=== PATIENT | female | born 1990 | race African-American/Black ===

== ENCOUNTER 2023-05-21 03:53 | Inpatient (IN) | payer BC, SELFPAY ==
[2023-05-21] VITALS (197 sets, daily range): BP systolic 114–204; BP diastolic 44–176; PULSE 60–194; RESP 16–24; TEMP 36.3–37.1; O2SAT 61–100; BMI 34.0
[2023-05-21] MEDS: MAGNESIUM SULF 4 GM/WATER100ML 4 GM/100 ML BAG IVPB (05:30)
[2023-05-21] MEDS: AMPICILLIN 2 GM/NS 100 ML 2 GM/100 ML BAG IVPB (05:31)
[2023-05-21] MEDS: LACTATED RINGERS 1,000 ML 125 ML IV CONT ×2 (05:31→16:18)
[2023-05-21 05:38] LABS: Basophils Percent Auto 0.2 % (0.2-1.2); Eosinophils Absolute Auto 0.6 K/mm3 (0-0.3); Eosinophils Percent Auto 6.3 % (0-4.4); Hematocrit 32.6 % (37.0-47.0); Hemoglobin 10.3 g/dL (12.0-15.0); Immature Granulocyte Absolute 0.04 K/mm3 (0.00-0.031); Immature Granulocyte Percent A 0.4 % (0-0.5); Lymphocytes Absolute Auto 1.82 K/mm3 (0.9-3.2); Lymphocytes Percent Auto 19.7 % (18.3-44.2); Mean Corpuscular HGB Conc 31.6 g/dl (32-36); Mean Corpuscular Volume 88.6 fl (80-100); Mean Platelet Volume 11.4 fl (7.4-10.4); Monocytes Absolute Auto 0.6 K/mm3 (0.1-0.6); Monocytes Percent Auto 6.8 % (2.6-8.5); Neutrophils Absolute Auto 6.1 K/mm3 (1.3-6.7); Neutrophils Percent Auto 66.6 % (45.5-73.1); Platelet Count Result 170 k/mm3 (150-375); Red Blood Count 3.68 M/mm3 (4.2-5.4); Red Cell Distribution Width 15.6 % (11.5-14.5); White Blood Count 9.2 K/mm3 (4.5-10.0)
--- NOTE | 2023-05-21 05:43 | LDADM ---
This patient, Kristy May Loveben, was admitted to Labor/Delivery/Recovery 105 on 05/21/23 at 03:53. Plans for labor, pain management and were discussed with patient. Patient/family oriented to hospital policies and general routines including ID bracelet, bed and alarms, visiting hours, pain management, procedures, bathroom and other care routines, personal items, smoking policy, room service/diet and guest tray routines, security routines, and visiting hours. Patient/Family are encouraged to report perceived risks to care and to ask questions if they do not understand what they are told or what they should do. See OBIX for further documentation.
[2023-05-21 05:47] LABS: Alanine Aminotransferase 19 U/L (6-35); Albumin Level 3.7 g/dL (3.5-5.1); Alkaline Phosphatase 140 U/L (38-126); Anion Gap 7 mmol/L (8-16); Aspartate Amino Transferase 27 U/L (14-36); Bilirubin,Total 0.4 mg/dL (0.2-1.3); Blood Urea Nitrogen 27 mg/dL (7-17); Calcium 8.6 mg/dL (8.4-10.2); Carbon Dioxide 17 mmol/L (22-30); Chloride 110 mmol/L (98-107); Estimated Glomerular Filt Rate 17; Glucose 79 mg/dL (65-110); Potassium 3.8 mmol/L (3.4-5.0); Sodium 134 mmol/L (137-145)
[2023-05-21] MEDS: MAGNESIUM SULF 20GM/WATER500ML 500 ML 50 MG IV CONT (05:51)
--- NOTE | 2023-05-21 06:56 | PC.NURSE ---
Verified magnesium sulfate assessment with Keri Louise RN at 0600.
[2023-05-21 07:40] LABS: Uric Acid 10.1 mg/dL (2.5-7.5)
[2023-05-21] MEDS: OXYTOCIN 30 UNITS/NS 500 ML 30 UNITS/500 ML BAG IV CONT (08:08)
--- NOTE | 2023-05-21 09:10 | WPDANESEPP ---
Anes - Eval Pre Procedure Procedure: labor epidural Date/Time: 05/21/23 09:10 Surgeon: chrissie Preop Diagnosis: pain during labor Pre Op Diagnosis: IOL Patient Data Age: 32 Gender: F Height: 1.6 m Weight: 87 kg Last Vital Signs Temp 37.1 C 05/21/23 08:08 Pulse 86 05/21/23 09:01 Resp 18 05/21/23 06:00 BP 150/86 H 05/21/23 09:01 O2 Del Method Room Air 05/21/23 06:05 Allergies Allergy/AdvReac Type Severity Reaction Status Date / Time No Known Allergies Allergy Verified 05/10/23 12:58 Home Medications Medication Instructions Recorded Confirmed Type prenat.vits,rocio,whe-xjfz-xhrpf 1 tablet 05/10/23 History Laboratory Tests 05/21/23 05:26 WBC 9.2 K/mm3 (4.5-10.0) RBC 3.68 L M/mm3 (4.2-5.4) Hgb 10.3 L g/dL (12.0-15.0) Hct 32.6 L % (37.0-47.0) MCV 88.6 fl (80-100) MCH 28.0 pg (26-34) MCHC 31.6 L g/dl (32-36) RDW 15.6 H % (11.5-14.5) Plt Count 170 k/mm3 (150-375) MPV 11.4 H fl (7.4-10.4) Immature Gran % (Auto) 0.4 % (0-0.5) Neut % (Auto) 66.6 % (45.5-73.1) Lymph % (Auto) 19.7 % (18.3-44.2) [place] % (Auto) 6.8 % (2.6-8.5) Eos % (Auto) 6.3 H % (0-4.4) Baso % (Auto) 0.2 % (0.2-1.2) Lymph # (Auto) 1.82 K/mm3 (0.9-3.2) [place] # (Auto) 0.6 K/mm3 (0.1-0.6) Eos # (Auto) 0.6 H K/mm3 (0-0.3) Baso # (Auto) 0.0 K/mm3 (0.0-0.1) Abs Immat Gran (auto) 0.04 H K/mm3 (0.00-0.031) Absolute Neuts (auto) 6.1 K/mm3 (1.3-6.7) Absolute Nucleated RBC 0.0 K/mm3 (0.0-0.012) Nucleated RBC % 0.0 % (0.0-0.2) Sodium 134 L mmol/L (137-145) Potassium 3.8 mmol/L (3.4-5.0) Chloride 110 H mmol/L (98-107) Carbon Dioxide 17 L mmol/L (22-30) Anion Gap 7 L mmol/L (8-16) BUN 27 H mg/dL (7-17) Creatinine 3.70 H mg/dL (0.7-1.0) Estim Creat Clear Calc Not Reportable Estimated GFR 17 L (59 - ) Glucose 79 mg/dL (65-110) Uric Acid 10.1 H mg/dL (2.5-7.5) Calcium 8.6 mg/dL (8.4-10.2) Total Bilirubin 0.4 mg/dL (0.2-1.3) AST 27 U/L (14-36) ALT 19 U/L (6-35) Alkaline Phosphatase 140 H U/L (38-126) Total Protein 7.0 g/dL (6.3-8.2) Albumin 3.7 g/dL (3.5-5.1) RPR Pending Blood Type A Positive Antibody Screen Negative Patient hx anesthesia problems: none Family hx anesthesia problems: none Results Review: All pre-operative results and documents have been reviewed as part of the pre-operative evaluation. [facility] Past Medical History Medical History (Updated 05/21/23 @ 09:10 by Ayanna Clancy CRNA) IUP (intrauterine ), incidental Family History Family History (Updated 05/10/23 @ 13:07 by Vanessa Watts RN) Grandparent Dementia Sibling Heart valve disease Mother Cervical cancer Grandparent Hypertension Social History Social History Smoking status: Never smoker Substance use: never Do You Feel Safe in your Home?: Yes Lack of Transportation: No Lack of Food: Never True Current Housing: I Have Housing Concerned About Future Housing: No Difficulty Paying Gas/Electric Bills: No Difficulty Paying for Meds: No Currently Unemployed: No Education: Bachelor's Degree Difficulty w/ Childcare or Family Care: No Spiritual care concerns: No Exam Day of Procedure 05/21/23 09:10
[2023-05-21] MEDS: AMPICILLIN 1 GM/NS 50 ML 1 GM/50 ML BAG IVPB ×2 (09:43→14:20)
[2023-05-21 12:09] LABS: Rapid Plasma Reagin Non-Reactive (NonReactive)
[2023-05-21 13:15] LABS: Magnesium 7.5 mg/dL (1.6-2.3)
--- NOTE | 2023-05-21 17:08 | WPDHPUPDATE1 ---
History and Physical Update Update Date/Time: 05/21/23 17:08 32-year-old primiparous female who presented overnight with ruptured membranes. She was spontaneously in early labor and proceeded to a more active phase. Later in labor she was augmented. She was getting external monitoring and maternal monitoring. She at a point got epidural anesthesia. History and Physical has been reviewed, including an updated exam of the patient. There are NO changes in the patient's condition. Risks, benefits, and alternatives have been discussed and questions answered. Patient agrees to proceed with procedure.
--- NOTE | 2023-05-21 17:10 | PM.IMHP ---
H&P: HPI History of Present Illness Date/Time: 05/21/23 17:10 Chief Complaint: labor Narrative: 32-year-old primiparous female who was in labor. She has failure to descend. We have agreed to perform delivery. She understands there is risk to delivery. She understands surgery in delivery, the technical aspects in some detail. She understands the risk is injury. She understands that injuries may result in hospitalization, more surgery, and severe illness. She understands risk of hemorrhage and infection. She denies any nausea, vomiting, fever, chills. She denies any chest pain shortness of breath. Review of Systems Review of Systems: All systems reviewed & are unremarkable except as noted in HPI and below Constitutional: Constitutional: Denies chills, Denies fatigue, Denies fever(s) and Denies weakness Eyes: Eyes: Denies blurry vision, Denies change in vision, Denies loss of peripheral vision, Denies loss of vision, Denies other visual disturbances and Denies eye pain ENT: Denies vertigo, Denies dizziness, Denies hearing loss, Denies mouth pain, Denies nasal obstruction, Denies neck mass and Denies neck pain Cardiovascular: Cardiovascular: Denies chest pain, Denies diaphoresis, Denies syncope, Denies leg edema and Denies dyspnea Respiratory: Respiratory: Denies chest congestion, Denies cough, Denies hemoptysis, Denies dyspnea and Denies wheezing Gastrointestinal: Gastrointestinal: Denies abdominal pain, Denies constipation, Denies diarrhea, Denies nausea and Denies vomiting Genitourinary: Genitourinary: Denies hematuria, Denies change in libido, Denies nocturia, Denies genital lesions, Denies flank pain and Denies urinary urgency Musculoskeletal: Musculoskeletal: Denies abnormal gait, Denies back pain, Denies myalgias, Denies arthralgias, Denies joint swelling, Denies muscle weakness and Denies neck pain Integumentary/Breasts: Skin/Breast: Denies swelling, Denies breast pain, Denies breast mass, Denies dry skin, Denies nipple discharge, Denies unusual bruising and Denies jaundice Neurologic: Denies Neuro-related abnormal movements, Denies Abnormal speech present, Denies abnormal gait, Denies behavioral changes, Denies confusion, Denies vertigo, Denies dizziness, Denies syncope, Denies loss of vision, Denies memory loss, Denies convulsions and Denies weakness Psychiatric: Psychiatric: Denies abnormal sleep pattern, Denies behavioral changes, Denies change in libido, Denies confusion, Denies depression, Denies anhedonia and Denies memory loss Endocrine: Endocrine: Reports no additional endocrine complaints, Denies change in libido and Denies fatigue Hematologic/Lymphatic: Hematologic/Lymphatic: Reports no additional hematologic/lymphatic complaints Allergic/Immunologic: Allergic/Immunologic: Reports no additional allergic/immunologic complaints and Denies wheezing PMFSH Past Medical History Medical History (Updated 05/21/23 @ 17:14 by Kassie eBcker MD) IUP (intrauterine ), incidental Family History Family History (Updated 05/10/23 @ 13:07 by Vanessa Watts RN) Grandparent Dementia Sibling Heart valve disease Mother Cervical cancer Grandparent Hypertension Social History Social History Smoking status: Never smoker Substance use: never Do You Feel Safe in your Home?: Yes Lack of Transportation: No Lack of Food: Never True Current Housing: I Have Housing Concerned About Future Housing: No Difficulty Paying Gas/Electric Bills: No Difficulty Paying for Meds: No Currently Unemployed: No Education: Bachelor's Degree Difficulty w/ Childcare or Family Care: No Spiritual care concerns: No Meds Home Medications and Allergies Home Medications Medication Instructions Recorded Confirmed Type prenat.vits,rocio,mut-ycjk-vkbac 1 tablet 05/10/23 History Allergies Allergy/AdvReac Type Severity Reaction Status Date / Time No Known Allergies All
[2023-05-21] MEDS: ceFAZolin 2 GM/D5W 50 ML 2 GM/50 ML BAG 100 GM (17:22)
[2023-05-21] MEDS: AZITHROMYCIN 500 MG/NS 250 ML 500 MG/250 ML BAG 250 MG (17:22)
--- NOTE | 2023-05-21 17:37 | PC.NURSE ---
FHT obtained in OR before prepping patient. FHT 125 at 1727.
--- NOTE | 2023-05-21 18:32 | PC.NURSE ---
Any section charting under Marielle Mabry RN was completed by Kd Wagner RN. Marielle Mabry RN was logged into the computer and Kd Wagner RN did not realize. Marielle Mabry RN notified and agrees with note.
--- NOTE | 2023-05-21 18:34 | PC.NURSE ---
Due to low position from pushing, during section Kd Wagner RN had to don a sterile glove and enter underneath the sterile field to push head up into pelvis high enough for MD to grab head to deliver via section.
--- NOTE | 2023-05-21 18:48 | W.PM.OBCSD ---
OB - Delivery Note Procedure Delivery date: 05/21/23 Pre-op diagnosis: Arrest of Decent Post-op Diagnosis: Same Delivery augmentation: Pitocin Delivery monitor: External FHT and External Uterine Prior to decision for section, ACOG/SMFM labor guidelines were considered and discussed with the patient and staff. Decision made to proceed with the section.: Yes Procedure Performed: Primary Surgeon: Kassie Becker MD Anesthesia type: Epidural Description of Procedure/Findings: The patient was taken the operating room.? She was prepped and draped in dorsal supine position with a leftward tilt.? This was done after spinal anesthetic was applied.? A low-transverse skin incision was made and carried down till of the fascia with the knife.? The fascial incision was made with the knife.? The fascial incision was extended laterally with [place] scissors.? The fascia was tented upward superiorly and inferiorly the rectus muscles were dissected off bluntly.? The rectus muscles were the midline.? The preperitoneal fat and peritoneum were dissected open bluntly at the superior aspect of the rectus muscles.? The peritoneal incision was extended superior and inferior with good position of bladder.? The uterine incision was made with a scalpel down to the level of the amniotic cavity.? The amniotic cavity was entered bluntly.? The infant was delivered.? The cord was clamped and cut and the was handed off to waiting pediatric staff.? Cord bloods were obtained.? The placenta was removed manually.? The uterus was exteriorized.? The uterus was cleared of all clots, debris and membranes.? The uterus was closed in 0 Vicryl running lock fashion.? imbricating layer of 0 Vicryl was placed also. The uterus was returned to the abdomen.? The gutters were cleared of all clots and debris.? The fascia was closed with 0 Vicryl running fashion.? The subcutaneous tissue was irrigated pinpoint bleeders were cauterized.? The skin was closed with subcuticular absorbable nerissa.? The skin incision line was covered with glue.? The patient tolerated the procedure well.? She has taken recovery room in stable condition.? Sponge lap and needle counts were correct x2.? Specimen: No Estimated Blood Loss: 530 Complications: No immediate complications Condition: Stable Disposition: Floor Baby Weeks of gestation at delivery: 38
[2023-05-21] MEDS: LABETALOL HCL 100 MG TABLET 200 MG PO (20:30)
--- NOTE | 2023-05-21 20:52 | OBPPTRN ---
Patient transferred to post room #290 via stretcher. Support person present. Oriented to unit, room, information board, rooming in, admission packet and security measures. Patient verbalizes understanding.
[2023-05-21] MEDS: KETOROLAC 30 MG/ML VIAL (*BKC) IV PUSH (22:20)
[2023-05-22] VITALS (9 sets, daily range): BP systolic 109–142; BP diastolic 56–92; PULSE 75–100; RESP 16–18; TEMP 36.6–37.6; O2SAT 97–100
[2023-05-22] MEDS: ONDANSETRON INJ 4 MG/2 ML VIAL IV PUSH (04:15)
[2023-05-22 06:22] LABS: Basophils Percent Auto 0.2 % (0.2-1.2); Eosinophils Percent Auto 0.1 % (0-4.4); Hematocrit 28.1 % (37.0-47.0); Hemoglobin 8.9 g/dL (12.0-15.0); Immature Granulocyte Absolute 0.14 K/mm3 (0.00-0.031); Immature Granulocyte Percent A 0.7 % (0-0.5); Lymphocytes Absolute Auto 1.31 K/mm3 (0.9-3.2); Lymphocytes Percent Auto 6.6 % (18.3-44.2); Mean Corpuscular HGB Conc 31.7 g/dl (32-36); Mean Corpuscular Hemoglobin 28.1 pg (26-34); Mean Corpuscular Volume 88.6 fl (80-100); Neutrophils Absolute Auto 17.3 K/mm3 (1.3-6.7); Neutrophils Percent Auto 87.4 % (45.5-73.1); Platelet Count Result 154 k/mm3 (150-375); Red Blood Count 3.17 M/mm3 (4.2-5.4); Red Cell Distribution Width 15.5 % (11.5-14.5); White Blood Count 19.8 K/mm3 (4.5-10.0)
--- NOTE | 2023-05-22 07:41 | WPDANLDPN2 ---
Anes-Prog Note L&D Date/Time: 05/22/23 07:41 Comfortable throughout: section Neuraxial method: epidural Epidural/Spinal procedure site: clean & non-tender Neuro status: Neuro function grossly intact. Cardiovascular status: normal Respiratory status: normal Airway patency: baseline Mental status: baseline Post-Op hydration status: normal Vital Signs: Last Vital Signs Temp 97.8 F 05/22/23 01:06 Pulse 80 05/22/23 04:19 Resp 16 05/22/23 01:06 BP 142/87 H 05/22/23 04:19 Pulse Ox 100 05/22/23 01:06 O2 Del Method Room Air 05/22/23 01:06 Pain score (VAS): 0/10 I/O: Intake & Output 05/21/23 05/21/23 05/22/23 15:59 23:59 07:59 Intake Total 0881 419 7351 Output Total 950 1450 Balance 1050 -450 -450 Post-procedural complaints: none Patient feedback: Patient satisfied with anesthetic care.
--- NOTE | 2023-05-22 07:42 | WPDANLDNPN2 ---
Anes-Prog Note L&D-Neuraxial Date/Time: 05/22/23 07:42 Neuraxial medications: intrathecal PF morphine Opiod-related complaints: none Patient feedback: Patient satisfied with post-operative pain management.
--- NOTE | 2023-05-22 08:24 | PM.OBPNVD ---
OB - PN: Subj Subjective Date/time seen: 05/22/23 08:24 Patient comments: no complaints, pain well controlled, tolerating diet and flatus present OB - PN: Obj Data Labs 05/22/23 06:08 05/21/23 05:26 Labs: Laboratory Results - last 24 hr 05/21/23 05/21/23 05/22/23 05:26 12:16 06:08 WBC 19.8 H RBC 3.17 L Hgb 8.9 L Hct 28.1 L MCV 88.6 MCH 28.1 MCHC 31.7 L RDW 15.5 H Plt Count 154 MPV 12.0 H Immature Gran % (Auto) 0.7 H Neut % (Auto) 87.4 H Lymph % (Auto) 6.6 L [place] % (Auto) 5.0 Eos % (Auto) 0.1 Baso % (Auto) 0.2 Lymph # (Auto) 1.31 [place] # (Auto) 1.0 H Eos # (Auto) 0.0 Baso # (Auto) 0.0 Abs Immat Gran (auto) 0.14 H Absolute Neuts (auto) 17.3 H Absolute Nucleated RBC 0.0 Nucleated RBC % 0.0 Magnesium 7.5 H RPR Non-reactive OB - PN A/P Plan day: 1 Comments: Post Op LTCS - no problems, routine recovery Time Spent With Patient Time: Total time spent is greater than 50% in coordination of care (as documented) at patient's floor/unit and/or counseling patient: Exam Const: General: cooperative, healthy appearing, comfortable and no acute distress Resp: Auscultation: no crackles, no rales, no rhonchi and no wheezes Cardio: Rhythm: regular rhythm Heart sounds: no click and no murmurs GI: Inspection: non-distended Auscultation: normal bowel sounds Extrem: General: normal to inspection, no pedal edema and no calf tenderness
[2023-05-22] MEDS: LABETALOL HCL 100 MG TABLET 200 MG PO ×2 (09:58→23:16)
[2023-05-22] MEDS: IBUPROFEN 600 MG TABLET PO ×3 (09:59→23:15)
[2023-05-22] MEDS: POLYSACCHARIDE IRON COMPLEX 150 MG CAPSULE PO ×2 (09:59→16:14)
--- NOTE | 2023-05-22 13:13 | PC.NURSE ---
[id number] Re-introductions were made since meeting at the class, then consulted with patient to assess needs related to . Mother led the conversation with her?plans to feed?her , the?experience so far without pain. Encouraged understanding of the benefits of skin to skin (demonstrating unwrapping and placing upright on her chest), stimulating with massage touch, changing positions to encourage wakefulness, how to watch for early feeding cues, responsive feeding, feeding on demand (aiming for 8-12 times in 24 hours, about every 2-3 hours), milk production, building/maintaining a milk supply, duration of feeding, signs of adequate intake/output and how to record on the feeding sheet. Mother verbalizes she is able to independently latch infant with appropriate positioning and alignment. She denies any nipple discomfort and is responsively . is currently meeting outcomes for weight, output, jaundice, blood sugar and feeding frequencies of 8-12 times in 24 hours. Questions were answered and we discussed protecting the milk supply as Father of baby is interested in bottle feeding occasionally. Mother is encouraged to call for assistance if her infant doesn?t latch, pain with latching, questions or concerns. Mother voiced understanding of information shared along with the mom/baby guide for an additional resource.
[2023-05-22] MEDS: SIMETHICONE 80 MG TAB.CHEW PO (16:14)
[2023-05-22] MEDS: HYDROcodone/acetaminophen (*CRX) 10-325 MG TABLET 1 TAB PO (23:15)
--- NOTE | 2023-05-23 08:03 | PM.OBPNVD ---
OB - PN: Subj Subjective Date/time seen: 05/23/23 08:03 Interval history: pp day 2 doing well baby doing well denies price, visual changes, epigastric pain OB - PN: Obj Data Labs 05/22/23 06:08 05/21/23 05:26 OB - PN A/P Plan day: 2 Plan: routine care Time Spent With Patient Time: Total time spent is greater than 50% in coordination of care (as documented) at patient's floor/unit and/or counseling patient: Review of Systems Review of Systems: All systems reviewed & are unremarkable except as noted in HPI and below Exam Const: General: cooperative, healthy appearing and comfortable Chest: Chest palpation & inspection: normal inspection of the chest Cardio: Rate: regular rate GI: Other: incision cdi Skin: General skin exam: normal color Neuro: General: patient oriented x3
[2023-05-23 08:20] VITALS: BP 121/81; PULSE 96; RESP 16; TEMP 37.3; O2SAT 100
[2023-05-23] MEDS: IBUPROFEN 600 MG TABLET PO ×2 (08:41→14:39)
[2023-05-23] MEDS: POLYSACCHARIDE IRON COMPLEX 150 MG CAPSULE PO ×2 (08:41→16:17)
[2023-05-23] MEDS: DOCUSATE SODIUM 100 MG CAPSULE PO (08:41)
[2023-05-23] MEDS: HYDROcodone/acetaminophen (*CRX) 10-325 MG TABLET 1 TAB PO (08:42)
[2023-05-23 12:24] VITALS: BP 125/66; PULSE 86; RESP 16; TEMP 37.3; O2SAT 100
[2023-05-23 16:35] VITALS: BP 135/82; PULSE 82; RESP 18; TEMP 36.8; O2SAT 100
[2023-05-23 19:45] VITALS: BP 133/71; PULSE 98; RESP 18; TEMP 37.8; O2SAT 100
[2023-05-24] VITALS (20 sets, daily range): BP systolic 115–150; BP diastolic 67–90; PULSE 70–101; RESP 16–18; TEMP 36.7–38; O2SAT 97–100
[2023-05-24] MEDS: LABETALOL HCL 100 MG TABLET 200 MG PO ×3 (00:57→23:10)
[2023-05-24] MEDS: HYDROcodone/acetaminophen (*CRX) 10-325 MG TABLET 1 TAB PO (00:57)
[2023-05-24] MEDS: IBUPROFEN 600 MG TABLET PO ×2 (00:57→08:46)
[2023-05-24 05:03] LABS: Hematocrit 21.7 % (37.0-47.0); Mean Corpuscular HGB Conc 31.8 g/dl (32-36); Mean Corpuscular Hemoglobin 28.3 pg (26-34); Mean Corpuscular Volume 88.9 fl (80-100); Mean Platelet Volume 12.1 fl (7.4-10.4); Platelet Count Result 178 k/mm3 (150-375); Red Blood Count 2.44 M/mm3 (4.2-5.4); Red Cell Distribution Width 16.5 % (11.5-14.5); White Blood Count 10.9 K/mm3 (4.5-10.0)
[2023-05-24 05:17] LABS: Hemoglobin 6.9 g/dL (12.0-15.0)
--- NOTE | 2023-05-24 06:48 | PM.OBPNVD ---
OB - PN: Subj Subjective Date/time seen: 05/24/23 06:48 Interval history: pp day 3 doing well baby doing well denies price, visual changes, epigastric pain anemia, plan blood OB - PN: Obj Data Labs 05/24/23 03:26 05/21/23 05:26 Labs: Laboratory Results - last 24 hr 05/24/23 03:26 WBC 10.9 H RBC 2.44 L Hgb 6.9 L* Hct 21.7 L MCV 88.9 MCH 28.3 MCHC 31.8 L RDW 16.5 H Plt Count 178 MPV 12.1 H OB - PN A/P Plan day: 3 Plan: routine care Comments: plan blood and rpt labs if improved may d/c home Time Spent With Patient Time: Total time spent is greater than 50% in coordination of care (as documented) at patient's floor/unit and/or counseling patient: Review of Systems Review of Systems: All systems reviewed & are unremarkable except as noted in HPI and below Exam Const: General: cooperative, healthy appearing and comfortable Resp: Effort & Inspection: normal respiratory effort Cardio: Rate: regular rate GI: Other: Incision CDI Back/Spine/Pelvis: Back: no CVA tenderness Skin: General skin exam: normal color Extrem: Right lower extremity: normal to inspection Left lower extremity: normal to inspection
--- NOTE | 2023-05-24 06:52 | P.DS_ITS ---
DS: Admitting Diagnosis Discharge Date 05/24/23 Admitting Diagnosis labor DS: Discharge Diagnosis Discharge Diagnosis (1) Post-op pain: Code(s): G89.18 - Other acute postprocedural pain Status: Acute (2) delivery delivered: Code(s): O82 - Encounter for delivery without indication Status: Acute (3) Anemia: Code(s): D64.9 - Anemia, unspecified Status: Acute OB - DS: Summary OB Procedures : None OB Procedures Intrapartum: OB Procedures: : Transfusion Peripartum Data Procedures: Procedures Operation Date: 05/21/23 17:10 Actual Procedure Side Surgeon p Section Not Applicable Kassie Becker MD Time Spent with Patient Time attestation: Total time spent providing and/or coordinating discharge services: DS: Data Data Completed and Pending Labs on day of discharge: Labs from last 24 hours 05/24/23 03:26 WBC 10.9 H RBC 2.44 L Hgb 6.9 L* Hct 21.7 L MCV 88.9 MCH 28.3 MCHC 31.8 L RDW 16.5 H Plt Count 178 MPV 12.1 H Discharge Plan Discharge Attending physician on discharge: Kassie Becker Discharging Clinician: Daniela Bishop Patient Disposition: Home, Self-Care Activity: pelvic rest Diet: regular Patient Instructions: Antibiotic Form Stand Alone Forms: General Discharge Information Follow-up/Referrals: Kassie Becker MD [Physician] - 1 Week Discharge Medications: New hydrocodone-acetaminophen 5-325 mg Tablet 1 tablet PO Q3H PRN (Reason: Moderate Pain (4-6)) Qty: 25 0RF Continued #2 Tablet 1 tablet Date of admission: 05/21/23 03:53 Primary Care Provider: PHYSICIAN,TESTER ARMATURE [employer] FIELDS Admitting Provider: Kassie Becker Attending physician on admission: Kassie Becker Condition: Stable
[2023-05-24] MEDS: POLYSACCHARIDE IRON COMPLEX 150 MG CAPSULE PO (08:46)
--- NOTE | 2023-05-24 10:23 | PC.NURSE ---
0810 RN called blood bank to see if blood was ready, per lab it was not ready. 0940 kitchen stewardess called and spoke to lab and was told patient needed another blood type and screen because her's had before they could prepare the blood products. RN to draw and send lab.
[2023-05-24] MEDS: SODIUM CHLORIDE 0.9% IV 250 ML 30 ML IV CONT (11:07)
--- NOTE | 2023-05-24 19:00 | PC.NURSE ---
1900 - Second bag of blood products completed. 315 mL infused. Vital signs taken and assessment completed. Patient stated that her IV site was bothering her because of location but that it did not feel painful. This RN flushed IV line with saline and IV site was patent and patient reported no pain. Patient stated that she was feeling fine and had no complaints at this time. RN to draw follow up blood work in the morning and IV to stay in place until results come back.
[2023-05-25 04:30] VITALS: BP 152/94; PULSE 82; RESP 16; TEMP 36.7; O2SAT 99
[2023-05-25 04:52] LABS: Hematocrit 29.6 % (37.0-47.0); Hemoglobin 9.7 g/dL (12.0-15.0)
[2023-05-25 07:30] VITALS: BP 168/90; PULSE 67; RESP 18; TEMP 37.1; O2SAT 100
[2023-05-25] MEDS: DOCUSATE SODIUM 100 MG CAPSULE PO (08:38)
[2023-05-25 08:39] VITALS: PULSE 68
[2023-05-25] MEDS: MULTIVIT/MIN/PREN/FOL AC/IRON TABLET 1 TAB PO (08:39)
[2023-05-25] MEDS: POLYSACCHARIDE IRON COMPLEX 150 MG CAPSULE PO (08:39)
[2023-05-25] MEDS: LABETALOL HCL 100 MG TABLET 200 MG PO (08:39)
--- NOTE | 2023-05-25 09:53 | PM.OBDSVD ---
DS: Admitting Diagnosis Discharge Date 05/25/23 Admitting Diagnosis labor OB - DS: Summary OB Procedures : None OB Procedures Intrapartum: OB Procedures: : Transfusion Peripartum Data Procedures: Procedures Operation Date: 05/21/23 17:10 Actual Procedure Side Surgeon p Section Not Applicable Kassie Becker MD Time Spent with Patient Time attestation: Total time spent providing and/or coordinating discharge services: DS: Data Data Completed and Pending Labs on day of discharge: Labs from last 24 hours 05/25/23 05/24/23 04:28 09:52 Hgb 9.7 L Hct 29.6 L Blood Type A Positive Antibody Screen Negative Crossmatch See Detail Discharge Plan Discharge Attending physician on discharge: Kassie Becker Discharging Clinician: Daniela Bsihop Patient Disposition: Home, Self-Care Activity: pelvic rest Diet: regular Patient Instructions: Antibiotic Form Stand Alone Forms: General Discharge Information Follow-up/Referrals: Kassie Becker MD [Physician] - 1 Week Discharge Medications: New hydrocodone-acetaminophen 5-325 mg Tablet 1 tablet PO Q3H PRN (Reason: Moderate Pain (4-6)) Qty: 25 0RF nifedipine [Procardia XL] 30 mg Tablet Extended Release 24hr 30 mg PO QAM Qty: 30 0RF Continued #2 Tablet 1 tablet Date of admission: 05/21/23 03:53 Primary Care Provider: PHYSICIAN,ASSISTANT PORTFOLIO MANAGER Admitting Provider: Kassie Becker Attending physician on admission: Kassie Becker Condition: Stable
[2023-05-25] MEDS: NIFEdipine 30 MG TAB.ER.24 PO (10:13)
[2023-05-25 10:19] VITALS: BP 145/89; PULSE 90
[2023-05-25 12:08] VITALS: BP 155/61; PULSE 85
[2023-05-25] MEDS: MEASLES,MUMPS,RUBELLA VACCINE 0.5 ML VIAL SUB-Q (12:50)
[2023-05-27 10:50] VITALS: BP 123/70; PULSE 80; RESP 20; TEMP 37; O2SAT 100
== END 2023-05-25 13:00 | disposition home or self-care (01) | DRG 788 ==
LOC: ANHLDR 04:40 → ANHOB2 21:02
PROVIDERS: Advanced Practice Midwife; Obstetrics & Gynecology; Admitting Provider Obstetrics & Gynecology; Visit Provider Obstetrics & Gynecology
PROC: 10D00Z1 Extraction of Products of Conception, Low, Open Approach (ICD-10-PCS; CPT 59514; principal; 2023-05-21 17:10)
DX: O62.2 Other uterine inertia (principal); O62.1 Secondary uterine inertia; O13.4 Gestational [pregnancy-induced] hypertension without significant proteinuria, complicating childbirth; Z37.0 Single live birth; Z3A.38 38 weeks gestation of pregnancy; O99.824 Streptococcus B carrier state complicating childbirth; O90.81 Anemia of the puerperium; D64.9 Anemia, unspecified
CPT/HCPCS: 36415; 36430; 80053; 83735; 84550; 85014; 85018; 85025; 85027; 86592; 86850; 86900; 86901; 86923; 90710; A9270; J0290; J0456; J0690; J1885; J2175; J2274; J2405; J2590; J2795; J3475; J7050; J7120; P9016

== ENCOUNTER 2024-04-27 12:18 | Outpatient (CLI) | payer BC, SELFPAY ==
--- NOTE | ~2024-04-27 | MM_ITS ---
EXAMINATION: MM screening rupali BI w ana HISTORY: Screening TECHNIQUE: Craniocaudal and mediolateral oblique 3-D tomosynthesis images were obtained and synthetic 2-D images were generated. CAD analysis was submitted and interpreted. COMPARISON: No prior mammogram is available for comparison at this institution. BREAST PARENCHYMAL COMPOSITION: Dense: The breasts are heterogeneously dense, which may obscure small masses FINDINGS: There is no evidence of suspicious mass, calcification, or architectural distortion to sugg est malignancy in either breast. There has been no suspicious interval change. IMPRESSION: 1. No mammographic evidence of malignancy. 2. Recommend routine screening mammography in one year. BI-RADS Category 1: Negative Reviewed, dictated and finalized at location B. DROGENATION OPERATOR HEAD
== END 2024-04-27 12:19 | disposition home or self-care (01) ==
PROVIDERS: PCP Obstetrics & Gynecology; Visit Provider Obstetrics & Gynecology
DX: Z12.31 Encounter for screening mammogram for malignant neoplasm of breast (principal); Z80.3 Family history of malignant neoplasm of breast
CPT/HCPCS: 77063; 77067